=== PATIENT | male | born 1980 | race Caucasian/White ===

== ENCOUNTER 2019-09-18 21:49 | Emergency (ER) | payer OTHER ==
[~2019-09-18] VITALS: Ht 180.3 cm; Wt 81.6 kg
[~2019-09-18 21:49] MED LIST: LEVAQUIN500 MG PO; PAROXETINE HCL20 MG PO; TYLENOL # 31 EA PO; TYLENOL WITH C1 EACH PO
[2019-09-18] MEDS ORDERED: ONDANSETRON HCL INJ 2MG/ML 2ML 2 MG/ML VIAL IV STA (22:06)
[2019-09-18] MEDS ORDERED: KETOROLAC TROMETHAMINE 30 MG/ML VIAL IV STA (22:06)
[2019-09-18] MEDS ORDERED: SODIUM CHLORIDE 0.9% 1000ML 1,000 ML IV SCH (22:15)
[2019-09-18] MEDS ORDERED: FLOMAX0.4 MG PO (22:18)
[2019-09-18] MEDS ORDERED: ONDANSETRON ODT8 MG PO (22:18)
[2019-09-18] MEDS ORDERED: ULTRAM50 MG PO (22:18)
[2019-09-18] MEDS ORDERED: NAPROSYN500 MG PO (22:18)
[2019-09-18] MEDS ORDERED: KETOROLAC TROMETHAMINE 30 MG/ML VIAL ONE (22:18)
[2019-09-18] MEDS ORDERED: ONDANSETRON HCL INJ 2MG/ML 2ML 2 MG/ML VIAL ONE (22:18)
[2019-09-18] MEDS ORDERED: SODIUM CHLORIDE 0.9% 1000ML 1,000 ML ONE (22:18)
[2019-09-18] MEDS ORDERED: MORPHINE SULFATE 5 MG/ML VIAL IV PRN (22:30)
[2019-09-18] MEDS ORDERED: MORPHINE SULFATE INJ 4 MG/ML INJ 1ML ONE ×2 (22:35→23:29)
--- NOTE | 2019-09-18 23:11 | Diagnostic Imaging Report ---
CT Abdomen and Pelvis without contrast INDICATION: Abdominal/flank pain, ^[id number] ^[id number] TECHNIQUE: Thin collimation axial images obtained from the diaphragm to the level of the pubic symphysis without nonionic intravenous contrast. Dose reduction techniques used: Automated exposure control, adjustment of the mAs and/or kVp according to patient size, standardized low-dose protocol, and/or iterative reconstruction technique. RADIATION DOSE: Total DLP: 636.45 mGy*cm Estimated effective dose: (DLP x 0.015 x size factor) mSv CTDIvol has been reviewed. It is below the limits set by the Radiation Protocol Committee (RPC). COMPARISON: None. ABDOMEN FINDINGS: Lung Bases: Clear. The visualized portion of the mediastinum is normal. Liver: Normal in attenuation without mass. Gallbladder: Present and appears normal. No ductal dilatation. Pancreas: Normal attenuation without mass. Spleen: Normal size without mass. Adrenal Glands: No evidence for mass. Kidneys: Right: No renal calculus. No cortical mass or hydronephrosis Left: Lower pole calculus measures 3 mm. There is mild perinephric inflammation. The renal pelvis is distended. No calyceal dilatation. Lymph Nodes: No lymphadenopathy. Aorta: Normal in diameter. PELVIS FINDINGS: Bowel: Stomach: Normal. Small Bowel: Normal in caliber with normal wall thickness. Large Bowel: Normal in caliber with normal wall thickness. There are chain sutures at the base of the cecum Appendix: Absent. Bladder: Normal. Ureters: Calculus in the proximal/mid left ureter measures 5 mm with periureteric inflammation. No calculus in the right ureter. Peritoneum/retroperitoneum: No free fluid or fluid collection. Bones: Unremarkable for age. IMPRESSION: 1. Mildly obstructing calculus in the proximal/mid left ureter. Left intrarenal calculus. 2. Appendectomy. Signed by: Dr. Katrina Ding MD on 09/18/2019 11:08 PM
[2019-09-18] MEDS ORDERED: MORPHINE SULFATE 5 MG/ML VIAL IV ONE (23:30)
[2019-09-18 23:49] VITALS: BP 138/59
== END 2019-09-18 23:51 | disposition home or self-care (01) ==
LOC: FSED 21:49
DX: R10.32 Left lower quadrant pain (principal); R11.2 Nausea with vomiting, unspecified; N20.1 Calculus of ureter
CPT/HCPCS: 74176; 80053; 81003; 85025; 96374; 96375; 96376; 99283; J1885; J2270; J2405; J7030